=== PATIENT | female | born 1980 | race Caucasian/White ===

== ENCOUNTER 2017-11-04 10:23 | Emergency (ER) | payer OTHER ==
[2017-11-04 10:39] VITALS: BP 114/73
--- NOTE | 2017-11-04 11:14 | UC ---
Ear Complaint HPI - HPI Summary HPI Summary: Pt here w/ abrupt onset Lt ear redness, pain, swelling w/ muffled hearing. Started last night. Denies injury, bug bite, inner ear pain/fullness or drainage. She also denies fever, chills, headache, neck stiffness, tinnitus, mastoid tenderness, recent illness, nasal congestion, ST, dizziness, trouble breathing or swallowing. She has not tried anything to tx sx yet. No h/o previous. - History of Current Complaint Hx Obtained From: Patient Hx Last Menstrual Period: 03/03/15 Pain Intensity: 7 <Karen Lazaro - Last Filed: 11/04/17 11:17> <Tereza Woods - Last Filed: 11/04/17 20:37> - History of Current Complaint Chief Complaint: UCEar Stated Complaint: LEFT EAR PAIN/NUMBNESS Time Seen by Provider: 11/04/17 10:56 - Allergies/Home Medications Allergies/Adverse Reactions: Allergies Allergy/AdvReac Type Severity Reaction Status Date / Time No Known Allergies Allergy Verified 11/04/17 10:39 Home Medications: Home Medications Norgestimate-Ethinyl Estradiol [Ortho Tri-Cyclen Lo Tablet] 1 each PO DAILY [History Confirmed 11/04/17] PMH/Surg Hx/FS Hx/Imm Hx Previously Healthy: Yes - Surgical History Surgical History: Yes Surgery Procedure, Year, and Place: right breast lumpectomy (non cancer) 2003 - Family History Known Family History: Positive: None - Social History Alcohol Use: Occasionally Substance Use Type: None Smoking Status (MU): Former Smoker <Karen Lazaro - Last Filed: 11/04/17 11:17> Review of Systems Constitutional: Negative Skin: Rash - Left ear Eyes: Negative ENT: Ear Ache Respiratory: Negative Cardiovascular: Negative Gastrointestinal: Negative Motor: Negative Neurovascular: Negative Musculoskeletal: Negative Neurological: Negative Psychological: Negative Is Patient Immunocompromised?: No All Other Systems Reviewed And Are Negative: Yes <Karen Lazaro - Last Filed: 11/04/17 11:17> Physical Exam Triage Information Reviewed: Yes Appearance: Well-Appearing, No Pain Distress, Well-Nourished Vital Signs: Initial Vital Signs Temp 98.9 F 11/04/17 10:35 Pulse 68 11/04/17 10:35 Resp 12 11/04/17 10:35 BP 114/73 11/04/17 10:35 Pulse Ox 100 11/04/17 10:35 Vital Signs Reviewed: Yes Eye Exam: Normal ENT: Positive: Hearing grossly normal, Pharynx normal, TMs normal, Uvula midline , Other - Lt pinna and postauricular tissue w/ mild erythema, edema and warmth to touch; tragus is NTTP as is mastoid. Negative: Pharyngeal erythema, Nasal congestion, Nasal drainage, TM bulging, TM dull, TM red, Tonsillar swelling, Tonsillar exudate, Trismus, Muffled voice, Hoarse voice, Dental tenderness, Sinus tenderness Dental Exam: Normal Neck: Positive: Supple, Nontender, Enlarged Nodes @ - Lt posterior cc - NTTP Respiratory Exam: Normal Respiratory: Positive: Normal breath sounds Cardiovascular Exam: Normal Cardiovascular: Positive: RRR Musculoskeletal Exam: Normal Musculoskeletal: Positive: Strength Intact, ROM Intact Neurological Exam: Normal Psychological Exam: Normal Skin Exam: Other - erythema of Lt ear as above - no vesicles, no pustules, no signs of abrasion/laceration/bite <Karen Lazaro - Last Filed: 11/04/17 11:17> Vital Signs: Initial Vital Signs Temp 98.9 F 11/04/17 10:35 Pulse 68 11/04/17 10:35 Resp 12 11/04/17 10:35 BP 114/73 11/04/17 10:35 Pulse Ox 100 11/04/17 10:35 <Tereza Woods - Last Filed: 11/04/17 20:37> Ear Complaint Course/Dx - Course Course Of Treatment: Possibly histamine reaction to unknown stilmus. Diff dx: cellulitis. Will advise NSAID, ice and antihistamine today - if no relief by tomorrow, start anbx and f/u w/ ENT. - Differential Dx/Diagnosis Provider Diagnoses: left ear swelling <Karen Lazaro - Last Filed: 11/04/17 11:17> Discharge - Sign-Out/Discharge Documenting (check all that apply): Discharge/Admit/Transfer - Billing Disposition and Condition Condition: STABLE Disposition: HOME <Karen Lazaro - Last Filed: 11/04/17 11:17> - Billing Disposition and Condition Condition: STABLE Disposition: HOME <Tereza Woods - Last Filed: 11/04/17 20:37> - Discharge Plan Condition: Stable Disposition: HOME Prescriptions: Cephalexin CAP* [Keflex CAP*] 500 mg PO BID #20 cap Patient Education Materials: Urticaria (ED), Cellulitis (ED) Referrals: Gene Rae MD [Primary Care Provider] - Additional Instructions: The definitive cause of your ear pain and swelling was not identified today. However there is clinical suspicion for allergic reaction. Try ibuprofen 600mg every 6 hours with food and benadryl 50mg every 6 hours for today. You may also apply ice. If redness, pain, swelling do not improve after recommendations for a 24 hours period, start antibiotic which has been sent to your pharmacy and follow-up with ENT. Call to schedule an appointment Attestation Statement User Type: Provider - I was available for consult. This patient was seen by the [facility]. The patient was not presented to, seen by, or examined by me. -Chalo <Tereza Woods - Last Filed: 11/04/17 20:37>
== END 2017-11-04 11:31 | disposition home or self-care (01) ==
LOC: UCCORT 10:23
DX: H93.8X2 Other specified disorders of left ear (principal); Z87.891 Personal history of nicotine dependence
CPT/HCPCS: 99212; G0463